=== PATIENT | female | born 1960 | race Caucasian/White ===

== ENCOUNTER 2020-04-09 22:04 | Emergency (ER) | payer BC, SELFPAY ==
--- NOTE | 2020-04-09 22:15 | ED.EPISTAXIS ---
HPI - Epistaxis General Chief complaint: Epistaxis Stated complaint: nosebleed Time Seen by Provider: 04/09/20 22:12 Source: patient History of Present Illness HPI Narrative: 59 years old white female came with right epistaxis started earlier today, intermittent. Patient denies any trauma or similar symptoms. Patient on aspirin. complaint: epistaxis Related Data Home Medications Medication Instructions Recorded Confirmed aspirin [Aspir-81] 81 mg PO DAILY 08/27/19 08/28/19 atorvastatin 20 mg PO HS 08/27/19 08/28/19 cholecalciferol (vitamin D3) 1,000 unit PO DAILY 08/27/19 08/28/19 [Vitamin D3] cranberry extract 500 mg PO BID 08/27/19 08/28/19 folic acid 1 mg PO DAILY 08/27/19 08/28/19 Allergies Allergy/AdvReac Type Severity Reaction Status Date / Time adhesive Allergy Unknown RASH Verified 01/26/20 15:33 fentanyl AdvReac Mild N&V FOR Verified 01/26/20 15:33 SEVERAL DAYS AFTER RECIEVING Review of Systems Review of Systems: Narrative: CONSTITUTIONAL: Denies fever, chills, or sweats. EYES: Denies visual changes, redness, or discharge. ENT: Denies rhinorrhea, congestion, sore throat, or otalgia. Epistaxis CARDIOVASCULAR: Denies chest pain, palpitations, or edema. RESPIRATORY: Denies cough or dyspnea. GASTROINTESTINAL: Denies abdominal pain, nausea, vomiting, or diarrhea. GENITOURINARY: Denies dysuria or hematuria. SKIN: Denies rash or itching. MUSCULOSKELETAL: Denies back pain, joint pain, or myalgia. NEUROLOGIC: Denies headache, numbness, or weakness. PSYCHIATRIC: Denies anxiety or depression. PMFSH Past Medical History Medical History Hyperlipidemia Exam Narrative: Exam Narrative: General appearance: Well-developed, well-nourished Skin: Normal color Head: Normocephalic, nontraumatic Eyes: Clear conjunctiva ENT: Oropharynx normal, ears normal, nose normal Neck: Supple, nontender Chest and respiratory: Airway patent, no respiratory distress, no accessory muscle use Heart: Regular rate/rhythm Abdomen: Soft, nontender, no organomegaly, quiet bowel sounds Vascular: Normal peripheral pulses, normal capillary refill. 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, no gross motor deficit Course Course Emergency Course: Improving Vital Signs Vital signs: Vital Signs Temperature 37.2 C 04/09/20 22:29 Pulse Rate 107 H 04/09/20 22:29 Respiratory Rate 15 04/09/20 22:29 Blood Pressure 142/81 H 04/09/20 22:29 Pulse Oximetry 100 04/09/20 22:29 Temperature 37.2 C 04/09/20 22:29 Pulse Rate 107 H 04/09/20 22:29 Respiratory Rate 15 04/09/20 22:29 Blood Pressure 142/81 H 04/09/20 22:29 Pulse Oximetry 100 04/09/20 22:29 Procedures Epistaxis Control right: Epistaxis Control Date: 04/09/20 Epistaxis Control Time: 23:12 Time Out Performed: Yes (10 minutes) Direct Inspection: unable to visualize Clots Removed by: manually Cautery Used: none Device Inserted: hemostatic balloon Patient Tolerated Procedure: well and no complications Epistaxis Control Narrative: I could not see the source of bleeding, patient was bleeding profusely, nasal compression did not stop the bleeding, Rhino Rocket placement was good enough to stop the bleeding over 15 minutes. Currently patient feeling okay except slight right cheek pain. Patient declined to take any pain medication in the emergency room because she have to drive herself back home. MDM - Epistaxis MDM Narrative Medical decision making narrative: Epistaxis, could be secondar
[2020-04-09 22:29] VITALS: BP 142/81; PULSE 107; RESP 15; TEMP 37.2; O2SAT 100
[2020-04-09 22:47] LABS: Basophils Absolute Auto 0.1 K/mm3 (0.0-0.1); Basophils Percent Auto 0.5 % (0.2-1.2); Eosinophils Absolute Auto 0.1 K/mm3 (0-0.3); Eosinophils Percent Auto 0.7 % (0-4.4); Hematocrit 39.3 % (37.0-47.0); Hemoglobin 12.7 g/dL (12.0-15.0); Immature Granulocyte Absolute 0.03 K/mm3 (0.00-0.031); Immature Granulocyte Percent A 0.3 % (0-0.5); Lymphocytes Absolute Auto 2.47 K/mm3 (0.9-3.2); Lymphocytes Percent Auto 26.4 % (18.3-44.2); Mean Corpuscular HGB Conc 32.3 g/dl (32-36); Mean Corpuscular Hemoglobin 29.1 pg (26-34); Mean Corpuscular Volume 90.1 fl (80-100); Mean Platelet Volume 10.7 fl (7.4-10.4); Monocytes Absolute Auto 0.6 K/mm3 (0.1-0.6); Monocytes Percent Auto 6.4 % (2.6-8.5); Neutrophils Absolute Auto 6.1 K/mm3 (1.3-6.7); Neutrophils Percent Auto 65.7 % (45.5-73.1); Platelet Count Result 272 k/mm3 (150-375); Red Blood Count 4.36 M/mm3 (4.2-5.4); Red Cell Distribution Width 14.6 % (11.5-14.5); White Blood Count 9.4 K/mm3 (4.5-10.0)
--- NOTE | 2020-04-09 23:11 | PC.NURSE ---
Report received from MANDO Rajput. Assumed care of patient at this time.
[2020-04-09] MEDS: KETOROLAC 30 MG/ML VIAL (*BKC) IV PUSH (23:29)
[2020-04-09] MEDS: AMOXICILLIN/CLAVULANATE K 875-125 MG TAB 1 TABLET PO (23:29)
== END 2020-04-09 23:48 | disposition home or self-care (01) ==
PROVIDERS: Emergency Provider Emergency Medicine
DX: R04.0 Epistaxis (principal); E78.5 Hyperlipidemia, unspecified
CPT/HCPCS: 30901; 36415; 85025; 96374; 99284; A9270; J1885

== ENCOUNTER 2020-04-10 06:05 | Emergency (ER) | payer BC, SELFPAY ==
[2020-04-10] VITALS (7 sets, daily range): BP systolic 96–130; BP diastolic 69–88; PULSE 62–94; RESP 15–20; TEMP 36.6–36.7; O2SAT 93–100
--- NOTE | 2020-04-10 07:18 | ED.EPISTAXIS ---
HPI - Epistaxis General Chief complaint: Epistaxis Stated complaint: epistaxis Time Seen by Provider: 04/10/20 07:04 History of Present Illness HPI Narrative: Seen here for a nose bleed last night. rapid rhino placed. Hemostasis obtained initially. Awoken from sleep early this morning by bleeding. Packing still in place. No trauma. No blood thinners. Related Data Home Medications Medication Instructions Recorded Confirmed atorvastatin 20 mg PO HS 08/27/19 08/28/19 cholecalciferol (vitamin D3) 1,000 unit PO DAILY 08/27/19 08/28/19 [Vitamin D3] cranberry extract 500 mg PO BID 08/27/19 08/28/19 Allergies Allergy/AdvReac Type Severity Reaction Status Date / Time adhesive Allergy Unknown RASH Verified 04/10/20 12:52 fentanyl AdvReac Mild N&V FOR Verified 04/10/20 12:52 SEVERAL DAYS AFTER RECIEVING Review of Systems Review of Systems: All systems reviewed & are unremarkable except as noted in HPI and below ENT: Denies dizziness, Reports epistaxis and Denies sore throat Cardiovascular: Cardiovascular: Denies chest pain Respiratory: Respiratory: Denies dyspnea Neurologic: Denies syncope and Denies weakness Hematologic/Lymphatic: Hematologic/Lymphatic: Denies easy bleeding and Denies easy bruising PMFSH Past Medical History Medical History Hyperlipidemia Exam Const: General: healthy appearing, no acute distress and alert Orientation/consciousness: patient oriented x3 HENMT: Other: Mild active bleeding around packing. Eyes: Pupils: Equal, round and reactive pupils present Neck: Neck: normal visual inspection and no lymphadenopathy Chest: Chest palpation & inspection: no tenderness Resp: Effort & Inspection: normal respiratory effort Auscultation: clear to auscultation bilaterally, no rales, no rhonchi and no wheezes Cardio: Jugular venous distension: no JVD Rate: regular rate Rhythm: regular rhythm Heart sounds: no murmurs GI: Inspection: non-distended GI Palp: Yes Soft to palpation and No Tenderness to palpation present (GI) Skin: General skin exam: normal color Neuro: General: patient oriented x3 and moves all extremities Speech: normal speech Extrem: General: no edema Psych: Appearance: well kempt Affect: normal affect Course Vital Signs Vital signs: Vital Signs Temperature 36.7 C 04/10/20 06:14 Pulse Rate 94 04/10/20 06:14 Respiratory Rate 18 04/10/20 06:14 Blood Pressure 116/77 04/10/20 06:14 Pulse Oximetry 99 04/10/20 06:14 Temperature 36.6 C 04/10/20 15:40 Pulse Rate 89 04/10/20 15:40 Respiratory Rate 18 04/10/20 15:40 Blood Pressure 105/69 04/10/20 15:40 Pulse Oximetry 96 04/10/20 15:40 Procedures Epistaxis Control right: Epistaxis Control Date: 04/10/20 Epistaxis Control Time: 16:04 Nose Prepped With: cocaine Direct Inspection: unable to visualize Clots Removed by: blowing nose Cautery Used: none Device Inserted: hemostatic balloon Device Size: 7 MDM - Epistaxis MDM Narrative Medical decision making narrative: I attempted adding air to the balloon already in place. She did not tolerate this well and it was not successful in stopping the bleeding. I then packed with TXA soaked gauze. Bleeding slowed. Contacted Dr. Clements he recommends putting a new rapid rhino in. This was done and the bleeding stopped. Discharge Plan Discharge Clinical Impression: Epistaxis Patient Disposition: Home, Self-Care Condition: Stable Instructions: Nosebleed (ED) Prescriptions: No Action atorvastatin 20 mg tablet 20 mg PO HS RF: 0 cranberry extract 500 mg Tablet 500 mg PO BID RF: 0 cholecalciferol (vitamin D3) [Vitamin D3] 1,000 unit Capsule 1,000 unit PO DAILY RF: 0 hydrocodone-acetaminophen 5-325 mg tablet 1 tablet PO Q4H PRN (Reason: pain) Qty: 14 RF: 0 Follow-up/Referrals: Connie
[2020-04-10] MEDS: LORazepam 1 MG TABLET PO ×2 (07:44→14:20)
--- NOTE | 2020-04-10 12:58 | PC.NURSE ---
Patient tells me that she usually has more bleeding when she sits up. At this time she is reporting blood in the back of her throat and is spitting clots into an emesis bag at this time. Patient was repositioned at this time to see if she was able to tolerate with no increase in bleeding.
--- NOTE | 2020-04-10 15:40 | PC.NURSE ---
In room with EDP, patient, and her family member. Discussing plan of care with EDP at this time.
--- NOTE | 2020-04-10 16:07 | PC.NURSE ---
EDP in room to place rhino rocket in right nare
== END 2020-04-10 17:56 | disposition home or self-care (01) ==
PROVIDERS: Emergency Provider Emergency Medicine; PCP Internal Medicine
DX: R04.0 Epistaxis (principal)
CPT/HCPCS: 30901; 99283; A9270

== ENCOUNTER → 2020-06-23 09:51 | Outpatient (CLI) | payer BC, SELFPAY ==
--- NOTE | ~2020-06-23 | CT_ITS ---
EXAMINATION: CT sinus wo con DATE: 06/23/2020 10:09 INDICATION: Chronic sinusitis. Nosebleeds. TECHNIQUE: Computed tomography (CT) of the paranasal sinuses was performed without intravenous contra st. The dose-length product was 297.70 mGy-cm. Automated exposure control and iterative reconstructio n technique were employed. COMPARISON: None FINDINGS: The paranasal sinuses are pneumatized. Mastoids are pneumatized. Ostiomeatal units are urena nt. Rightward nasal septal deviation. No mucosal thickening, mucoperiosteal reaction. Ostiomeatal uni ts are patent. IMPRESSION: 1. No significant sinus disease. Reviewed, dictated and finalized at location B.
== END ==
PROVIDERS: Visit Provider Internal Medicine
DX: J32.9 Chronic sinusitis, unspecified (principal)
CPT/HCPCS: 70486

== ENCOUNTER 2020-10-12 14:57 | Outpatient (CLI) | payer BC, SELFPAY ==
--- NOTE | ~2020-10-12 | MM_ITS ---
EXAMINATION: MM screening kulwant BI w lindsey HISTORY: Screening mammogram, family history of breast cancer in her mother. TECHNIQUE: Craniocaudal and mediolateral oblique 3-D tomosynthesis images were obtained and synthetic 2-D images were generated. CAD analysis was submitted and interpreted. COMPARISON: 09/23/2019, 09/18/2019, 09/05/2017 BREAST PARENCHYMAL COMPOSITION: There are scattered areas of fibroglandular density. FINDINGS: Scattered benign-appearing calcifications are present. There is no evidence of suspicious m ass, calcification, or architectural distortion to suggest malignancy in either breast. There has bee n no suspicious interval change. IMPRESSION: 1. No mammographic evidence of malignancy. 2. Recommend routine screening mammography in one year. BI-RADS Category 2: Benign finding(s). Reviewed, dictated and finalized at location A. 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
== END 2020-10-12 14:58 | disposition home or self-care (01) ==
LOC: ANHIMG 14:59
PROVIDERS: PCP Internal Medicine; Visit Provider Internal Medicine
DX: Z12.31 Encounter for screening mammogram for malignant neoplasm of breast (principal)
CPT/HCPCS: 77063; 77067

== ENCOUNTER → 2020-12-07 12:01 | Outpatient (CLI) | payer BC, SELFPAY ==
[2020-12-08 00:45] LABS: SARS-CoV-2 RNA PCR Negative
== END ==
PROVIDERS: PCP Internal Medicine; Visit Provider Internal Medicine
DX: R05 Cough (principal); Z20.822 Contact with and (suspected) exposure to COVID-19
CPT/HCPCS: C9803; U0003; U0005

== ENCOUNTER 2021-10-20 07:47 | Emergency (ER) | payer BC, SELFPAY ==
--- NOTE | ~2021-10-20 | CT_ITS ---
EXAMINATION: CT abdomen pelvis w con DATE: 10/20/2021 08:55 INDICATION: Right upper quadrant abdominal pain. TECHNIQUE: Computed tomography (CT) of the abdomen and pelvis was performed with 100 mL Omnipaque 350 intravenous contrast. Automated exposure control and iterative reconstruction technique were employe d. The dose-length product was 869.26 mGy-cm. COMPARISON: CT abdomen and pelvis 09/25/2018 FINDINGS: The visualized portions of the lung bases demonstrate mild atelectasis. No pleural effusion . The heart size is normal. No pericardial effusion. The liver, gallbladder, spleen, pancreas, adrena l glands, and kidneys are normal. There are no dilated loops of bowel. There is fat stranding around an epiploic appendage of hepatic flexure of the colon, consistent with epiploic appendagitis. The aitf endix is normal. There are no pathologically enlarged lymph nodes. There is no free intraperitoneal f luid. There is a hemangioma in T9 vertebral body. IMPRESSION: 1. Epiploic appendagitis involving the hepatic flexure of the colon. Reviewed, dictated and finalized at location B. 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
[2021-10-20 07:51] VITALS: BP 138/87; PULSE 91; RESP 18; TEMP 37.1; O2SAT 100
--- NOTE | 2021-10-20 08:04 | ED.ABDPAIN ---
HPI - Abdominal Pain General Chief Complaint: Abdominal Pain Stated Complaint: ABD Pain Time Seen by Provider: 10/20/21 07:52 Source: patient Mode of arrival: ambulatory Limitations: no limitations History of Present Illness HPI narrative: Patient is a 60-year-old female complaining of right upper quadrant pain, 7 out of 10, sharp, nonradiating accompanied by nausea that started 2 days ago. Patient denies any chest pain, shortness of breath, vomiting, diarrhea, urinary symptoms, fever or chills. Related Data Home Medications Medication Instructions Recorded Confirmed atorvastatin 20 mg PO HS 08/27/19 10/13/21 cholecalciferol (vitamin D3) 1,000 unit PO DAILY 08/27/19 10/13/21 [Vitamin D3] cranberry extract 500 mg PO BID 08/27/19 10/13/21 Allergies Allergy/AdvReac Type Severity Reaction Status Date / Time adhesive Allergy Unknown RASH Verified 10/20/21 07:58 fentanyl AdvReac Mild N&V FOR Verified 10/20/21 07:58 SEVERAL DAYS AFTER RECIEVING Review of Systems Review of Systems: All systems reviewed & are unremarkable except as noted in HPI and below Constitutional: Constitutional: Denies body ache(s), Denies chills, Denies excessive sweating, Denies fatigue, Denies fever(s), Denies headache(s), Denies lethargy, Denies malaise, Denies weakness and Denies weight loss Eyes: Eyes: Denies blurry vision, Denies change in vision and Denies loss of vision ENT: Denies dizziness, Denies ear discharge, Denies headache(s), Denies lip swelling, Denies epistaxis, Denies nasal congestion, Denies neck pain, Denies throat swelling and Denies tongue swelling Cardiovascular: Cardiovascular: Denies chest pain, Denies chest pain at rest, Denies chest pain with activity, Denies diaphoresis, Denies rapid heart rate, Denies edema, Denies irregular heart rhythm, Denies lightheadedness, Denies palpitations, Denies dyspnea and Denies dyspnea on exertion Respiratory: Respiratory: Denies chest congestion, Denies cough, Denies hemoptysis, Denies dyspnea and Denies dyspnea on exertion Gastrointestinal: Gastrointestinal: Denies melena, Denies hematochezia, Denies diarrhea, Denies vomiting and Denies hematemesis Musculoskeletal: Musculoskeletal: Denies abnormal gait, Denies deformity, Denies joint swelling, Denies limited range of motion, Denies neck pain and Denies numbness Neurologic: Denies Abnormal speech present, Denies abnormal gait, Denies confusion, Denies dizziness, Denies headache(s), Denies focal weakness, Denies loss of vision, Denies numbness, Denies Other visual disturbances, Denies Sensory deficit (Neuro) and Denies weakness Psychiatric: Psychiatric: Denies confusion, Denies depression, Denies auditory hallucinations, Denies homicidal ideation and Denies suicidal ideation Endocrine: Endocrine: Denies cold intolerance, Denies excessive sweating, Denies fatigue, Denies heat intolerance and Denies palpitations Hematologic/Lymphatic: Hematologic/Lymphatic: Denies easy bleeding and Denies easy bruising Allergic/Immunologic: Allergic/Immunologic: Denies lip swelling, Denies throat swelling and Denies tongue swelling PMFSH Past Medical History Medical History (Updated 10/20/21 @ 10:25 by Breezy Hines MD) Hyperlipidemia Social History Social History Smoking packs per day: 1 Smoking cigarettes per day: 20.0 Years smoked: 30 Smoking pack-years: 30.00 Smoking status: Former smoker Tobacco type: cigarettes Alcohol intake: current Alcohol use details: occasional Substance use: never Substance use type: does not use Spiritual care concerns: No Exam Const: General: cooperative, healthy appearing, comfortable, no acute distress, well developed, alert and awake; No confusion Orientation/consciousness: oriented to person, oriented to place, oriented to time, patient oriented x3 and No confusion Limitations: no limitations HENMT: Head: n
[2021-10-20] MEDS: SODIUM CHLORIDE 0.9% IV 1,000 ML 999 ML IV CONT (08:10)
[2021-10-20 08:31] LABS: Basophils Absolute Auto 0.1 K/mm3 (0.0-0.1); Basophils Percent Auto 0.7 % (0.2-1.2); Eosinophils Absolute Auto 0.3 K/mm3 (0-0.3); Eosinophils Percent Auto 3.1 % (0-4.4); Hematocrit 40.3 % (37.0-47.0); Hemoglobin 13.1 g/dL (12.0-15.0); Immature Granulocyte Absolute 0.01 K/mm3 (0.00-0.031); Immature Granulocyte Percent A 0.1 % (0-0.5); Lymphocytes Percent Auto 34.2 % (18.3-44.2); Mean Corpuscular HGB Conc 32.5 g/dl (32-36); Mean Corpuscular Volume 89.4 fl (80-100); Mean Platelet Volume 10.4 fl (7.4-10.4); Monocytes Absolute Auto 0.8 K/mm3 (0.1-0.6); Monocytes Percent Auto 9.3 % (2.6-8.5); Neutrophils Absolute Auto 4.3 K/mm3 (1.3-6.7); Neutrophils Percent Auto 52.6 % (45.5-73.1); Platelet Count Result 319 k/mm3 (150-375); Red Blood Count 4.51 M/mm3 (4.2-5.4); Red Cell Distribution Width 14.7 % (11.5-14.5); White Blood Count 8.2 K/mm3 (4.5-10.0)
[2021-10-20 08:41] LABS: Add Urine Microscopic? YES; Appearance Urine Clear (Clear); Bilirubin Urine Negative (Negative); Blood Urine 1+ (Negative); Color Urine Yellow (Yellow); Glucose Urine UA Negative (Negative); Ketones Urine Negative (Negative); Leukocyte Esterase Ur Trace LEU/UL (Negative); Mucus Urine Few /lpf; Nitrate Urine Negative (Negative); Protein Urine Negative (Negative); Specific Grav Ur 1.024 (1.001-1.035); Squamous Epithelial Cell Urine Rare /hpf (Few); Urobilinogen Urine Negative mg/dL (<2.0); WBC Urine 0-3 /hpf
[2021-10-20 08:41] LABS: Alanine Aminotransferase 23 U/L (4-35); Albumin Level 4.3 g/dL (3.5-5.1); Alkaline Phosphatase 89 U/L (38-126); Anion Gap 7 mmol/L (8-16); Aspartate Amino Transferase 29 U/L (14-36); Bilirubin,Total 0.4 mg/dL (0.2-1.3); Blood Urea Nitrogen 19 mg/dL (7-17); Carbon Dioxide 26 mmol/L (22-30); Chloride 106 mmol/L (98-107); Estimated CRCL calculation 80 ml/min; Estimated Glomerular Filt Rate > 60; Glucose 108 mg/dL (65-110); Lipase 71 U/L (23-300); Potassium 4.1 mmol/L (3.4-5.0); Sodium 139 mmol/L (137-145)
[2021-10-20 10:30] VITALS: BP 125/83; PULSE 83; RESP 14; O2SAT 97
== END 2021-10-20 10:30 | disposition home or self-care (01) ==
PROVIDERS: Emergency Provider Emergency Medicine; PCP Internal Medicine
DX: K63.89 Other specified diseases of intestine (principal); E78.5 Hyperlipidemia, unspecified; Z87.891 Personal history of nicotine dependence
CPT/HCPCS: 36415; 74177; 80053; 81001; 83690; 85025; 96360; 99284; J7030; Q9967

== ENCOUNTER → 2021-10-24 02:09 | Outpatient (CLI) | payer BC, SELFPAY ==
[2021-10-24 19:53] LABS: SARS-CoV-2 RNA PCR Positive
== END ==
PROVIDERS: PCP Internal Medicine; Visit Provider Internal Medicine Gastroenterology
DX: U07.1 COVID-19 (principal)
CPT/HCPCS: C9803; U0003; U0005

== ENCOUNTER 2021-11-24 03:24 | Day surgery (SDC) | payer BC, SELFPAY ==
[2021-10-13 14:54] VITALS: BMI 29.5
--- NOTE | 2021-11-13 11:54 | PC.NURSE ---
pt udpated with new date and time for egd on nov 24, arrive at 0915 for 1045 procedure. pt states no changes to health or meds since last pat call. voiced understanding of instruction but does request hard copy be mailed. let her know it would be mailed to her.
[2021-11-24 09:34] VITALS: BP 124/79; PULSE 77; RESP 17; TEMP 36.4; O2SAT 99; BMI 32.1
[2021-11-24] MEDS: LACTATED RINGERS 1,000 ML 150 ML IV CONT (09:39)
--- NOTE | 2021-11-24 09:59 | P.PNAN_ITS ---
Anes - Initial Pre Proc Eval Procedure: Operation Date: 11/24/21 10:45 Proposed Procedures p Esophagogastroduodenoscopy - Dylan Dent MD Date/Time: 11/24/21 09:59 Surgeon: Dylan Dent MD Pre Op Diagnosis: GERD Patient Data Age: 61 Gender: F Height: 1.63 m Weight: 84.8 kg Last Vital Signs Temp 36.4 C L 11/24/21 09:34 Pulse 77 11/24/21 09:34 Resp 17 11/24/21 09:34 BP 124/79 11/24/21 09:34 Pulse Ox 99 11/24/21 09:34 Allergies Allergy/AdvReac Type Severity Reaction Status Date / Time adhesive Allergy Unknown RASH Verified 11/24/21 09:32 fentanyl AdvReac Mild N&V FOR Verified 11/24/21 09:32 SEVERAL DAYS AFTER RECIEVING Home Medications Medication Instructions Recorded Confirmed Type atorvastatin 20 mg PO HS 08/27/19 11/24/21 History cholecalciferol (vitamin D3) 1,000 unit PO DAILY 08/27/19 11/24/21 History [Vitamin D3] cranberry extract 500 mg PO BID 08/27/19 11/24/21 History tramadol 50 mg PO Q6H PRN #12 tablet 10/20/21 11/24/21 Rx Patient hx anesthesia problems: none Family hx anesthesia problems: none Results Review: All pre-operative results and documents have been reviewed as part of the pre-operative evaluation. [facility] Past Medical History Medical History Arthritis GERD (gastroesophageal reflux disease) Hyperlipidemia NESTOR (obstructive sleep apnea) Social History Social History Smoking packs per day: 1 Smoking cigarettes per day: 20.0 Years smoked: 30 Smoking pack-years: 30.00 Smoking status: Former smoker Tobacco type: cigarettes Alcohol intake: current Alcohol use details: occasional Substance use: never Substance use type: does not use Living arrangements: with family Spiritual care concerns: No Anes - Eval Final PreProcedure Day of Procedure 11/24/21 09:59 Patient weight: obese Heart: regular rate and rhythm Lungs: decreased breath sounds Airway: Mallampati scale class II Neurological: alert and oriented Last oral intake: >/= 8 hours ASA classification: III Emergent: no Anesthetic plan: proceed Anesthesia type and monitoring: general GIVS and standard monitoring Results Review: All pre-operative results and documents have been reviewed as part of the pre-operative evaluation. Informed Consent: The patient's anesthetic plan and its attendant risks and benefits were discussed with the patient/family/POA. Questions were solicited and answers provided to the satisfaction of the patient/family/POA.
--- NOTE | 2021-11-24 10:24 | WPDGICN ---
Assessment and Plan Assessment and plan (1) Epigastric abdominal pain: Code(s): R10.13 - Epigastric pain Status: Acute Assessment and Plan: Patient with resolved epigastric pain apparently diagnosed as having epiploic appendagitis in the ER. Likely this has resolved at this point. Patient does have difficulty swallowing cold liquids suggesting possible esophageal spasm. She notes a burning type regurgitation in her throat. I would recommend in consideration of Pepcid or Prilosec be given on a daily basis for this. An EGD has been requested will be performed. Previous EGD in 2019 was unremarkable with similar complaints. Further recommendations will be given after endoscopy at this time. GI Consult Note Consult date/time: 11/24/21 10:24 HPI: Mindy Dukes is a 61 year old female Presents for EGD. Patient complains of burning reflux in her throat. She states this occurs intermittently. She will occasionally take Tums for relief. On no other medications for this at present. She apparently tried Zantac in the past but stopped this went with withdrawn from the market. She has not tried any other acid suppressing medications. She additionally notes that when drinking cold liquids that they will pass slowly through the mid substernal portion of the chest. She also states that she has difficulty open her mouth wide because of previous dislocation of her jaw. Patient recently seen in the ER in October with upper abdominal discomfort. CT scan suggested epiploic appendagitis. This pain is subsequently ablated. For all these reasons an EGD was requested to be performed today. Patient has a history of an EGD in 2019 that was unremarkable. At that time Pepcid therapy was suggested as a trial. Apparently this has not yet been accomplished. Review of Systems Review of Systems: All systems reviewed & are unremarkable except as noted in HPI and below [facility] Past Medical History Medical History Arthritis GERD (gastroesophageal reflux disease) Hyperlipidemia NESTOR (obstructive sleep apnea) Social History Social History Smoking packs per day: 1 Smoking cigarettes per day: 20.0 Years smoked: 30 Smoking pack-years: 30.00 Smoking status: Former smoker Tobacco type: cigarettes Alcohol intake: current Alcohol use details: occasional Substance use: never Substance use type: does not use Living arrangements: with family Spiritual care concerns: No Meds Home Medications and Allergies Home Medications Medication Instructions Recorded Confirmed Type atorvastatin 20 mg PO HS 08/27/19 11/24/21 History cholecalciferol (vitamin D3) 1,000 unit PO DAILY 08/27/19 11/24/21 History [Vitamin D3] cranberry extract 500 mg PO BID 08/27/19 11/24/21 History tramadol 50 mg PO Q6H PRN #12 tablet 10/20/21 11/24/21 Rx Allergies Allergy/AdvReac Type Severity Reaction Status Date / Time adhesive Allergy Unknown RASH Verified 11/24/21 09:32 fentanyl AdvReac Mild N&V FOR Verified 11/24/21 09:32 SEVERAL DAYS AFTER RECIEVING Vital Signs Vital Signs - 24 hr 11/24/21 09:34 Temperature 97.5 F L Pulse Rate 77 Respiratory Rate 17 Blood Pressure 124/79 Pulse Oximetry 99 Exam Narrative: Physical exam reveals patient to be alert. Vital signs stable. HEENT exam is unremarkable. Patient is anicteric. Lungs are clear to auscultation and percussion. Heart is without murmur or extra sounds. Abdomen bowel sounds present soft nontender with no organomegaly.
[2021-11-24 10:48] VITALS: BP 101/68; PULSE 75; RESP 18; O2SAT 99
[2021-11-24 10:58] VITALS: BP 99/66; PULSE 79; RESP 21; O2SAT 98
[2021-11-24 11:08] VITALS: BP 112/78; PULSE 75; RESP 18; O2SAT 99
== END 2021-11-24 11:19 | disposition home or self-care (01) ==
PROVIDERS: PCP Internal Medicine; Visit Provider Internal Medicine Gastroenterology
PROC: 0DJ08ZZ Inspection of Upper Intestinal Tract, Via Natural or Artificial Opening Endoscopic (ICD-10-PCS; CPT 43235; principal; 2021-11-24 10:45)
DX: K21.9 Gastro-esophageal reflux disease without esophagitis (principal); E78.5 Hyperlipidemia, unspecified; G47.33 Obstructive sleep apnea (adult) (pediatric); Z87.891 Personal history of nicotine dependence; E66.9 Obesity, unspecified; Z68.32 Body mass index [BMI] 32.0-32.9, adult
CPT/HCPCS: 43239; 87081; J2001; J2704; J7120

== ENCOUNTER 2022-01-02 16:42 | Outpatient (CLI) | payer BC, SELFPAY ==
--- NOTE | ~2022-01-02 | MM_ITS ---
EXAMINATION: MM screening kulwant BI w lindsey HISTORY: Screening mammogram, family history of breast cancer in her mother. TECHNIQUE: Craniocaudal and mediolateral oblique 3-D tomosynthesis images were obtained and synthetic 2-D images were generated. CAD analysis was submitted and interpreted. COMPARISON: 10/12/2020, 09/23/2019, 09/18/2018 BREAST PARENCHYMAL COMPOSITION: There are scattered areas of fibroglandular density. FINDINGS: Scattered benign-appearing calcifications are present. There is no suspicious mass, calcifi cation, or architectural distortion to suggest malignancy in either breast. There has been no suspici ous interval change. IMPRESSION: 1. No mammographic evidence of malignancy. 2. Recommend routine screening mammography in one year. BI-RADS Category 2: Benign finding(s). Reviewed, dictated and finalized at location A.
== END 2022-01-02 16:43 | disposition home or self-care (01) ==
LOC: ANHIMG 16:44
PROVIDERS: PCP Internal Medicine; Visit Provider Internal Medicine
DX: Z12.31 Encounter for screening mammogram for malignant neoplasm of breast (principal)
CPT/HCPCS: 77063; 77067

== ENCOUNTER 2022-02-13 15:28 | Outpatient (CLI) | payer BC, SELFPAY ==
--- NOTE | ~2022-02-13 | DEXA_ITS ---
Bone Density Report Name: CAYDEN HERRERA Age: 61 Sex: Female Ethnicity: White Date of : 1960 Indication: postmenopausal; screening for osteoporosis; hysterectomy; Referring Provider: LEXI, MANI Study: Bone densitometry was performed. Exam Date: February 13, 2022 Accession number: [id number] Bone Density: Region BMD T-score Z-score Classification AP Spine(L1-L4) 0.888 -1.4 -0.1 Osteopenia Femoral Neck (Left) 0.712 -1.2 0.0 Osteopenia Total Hip (Left) 0.873 -0.6 0.3 Normal Femoral Neck (Right) 0.727 -1.1 0.2 Osteopenia Total Hip (Right) 0.843 -0.8 0.1 Normal Total Hip Mean 0.858 -0.7 0.2 Normal World Health Organization criteria for BMD impression classify patients as: Normal (T-score at or above -1.0), Osteopenia (T-score between -1.0 and -2.5), or Osteoporosis (T-score at or below -2.5). 10-year Fracture Risk(1): Major Osteoporotic Fracture 6.9% Hip Fracture 0.4% Reported Risk Factors: [place] (), Neck BMD=0.712, BMI=31.1 (1) FRAX(R) Version 3.08. Fracture probability calculated for an untreated patient. Fracture probability may be lower if the patient has received treatment. Clinical Information Provided by Patient: Has the following medical conditions: Hysterectomy Patient maximum height was 65 Menopause Age: 58 No regular weight bearing exercise Drinks caffeinated beverages Onset of menses at age 14 Number of children 3 Impression: The patient has low bone mass, based on the Total Spine T-score. The patient has an estimated ten-year risk of hip fracture of 0.4% and an estimated ten-year risk of major fracture of 6.9%, based on the WHO FRAX algorithm. Discussion: BONE DENSITY IS LOW AT ONE OR MORE SKELETAL SITES. This patient's lowest T-score is low at one or more skeletal sites. It meets the World Health Organization's (WHO) criteria for ?low bone mass? (T-score between -1.0 and -2.5). The patient's 10-year risk of fracture as calculated by FRAX is less than the threshold where pharmacological therapy is recommended by the National Osteoporosis Foundation (NOF). However, all treatment decisions require clinical judgment and consideration of individual patient factors, including patient preferences, comorbidities, previous drug use, risk factors not captured in the FRAX model (e.g., frailty, falls, vitamin D deficiency, increased bone turnover, interval significant decline in bone density) and possible under or overestimation of fracture risk by FRAX. The patient should follow a healthful lifestyle (good nutrition with adequate calcium and vitamin D, and appropriate weight-bearing exercise). Follow-Up: Consider repeating this study in 2 to 3 years to reassess this patient's status, or sooner if there is some new clinical indication. Reported
== END 2022-02-13 15:29 | disposition home or self-care (01) ==
PROVIDERS: PCP Internal Medicine; Visit Provider Internal Medicine
DX: Z13.820 Encounter for screening for osteoporosis (principal); M85.88 Other specified disorders of bone density and structure, other site; M85.851 Other specified disorders of bone density and structure, right thigh; M85.852 Other specified disorders of bone density and structure, left thigh
CPT/HCPCS: 77080

== ENCOUNTER 2023-07-17 15:48 | Outpatient (CLI) | payer BC, SELFPAY ==
--- NOTE | ~2023-07-17 | MM_ITS ---
EXAMINATION: MM screening kulwant BI w lindsey HISTORY: Screening mammogram TECHNIQUE: Craniocaudal and mediolateral oblique 3-D tomosynthesis images were obtained and synthetic 2-D images were generated. CAD analysis was submitted and interpreted. COMPARISON: 01/02/2022, 10/12/2020, 09/23/2019 bilateral screening mammogram examinations BREAST PARENCHYMAL COMPOSITION: There are scattered areas of fibroglandular density. FINDINGS: Numerous scattered bilateral benign calcifications are are noted, mostly sebaceous cyst lesli cifications. There is no evidence of suspicious mass, calcification, or architectural distortion to s uggest malignancy in either breast. There has been no suspicious interval change. IMPRESSION: 1. No mammographic evidence of malignancy. 2. Recommend routine screening mammography in one year. BI-RADS Category 2: Benign finding(s). Reviewed, dictated and finalized at location A.
== END 2023-07-17 15:49 | disposition home or self-care (01) ==
LOC: ANHIMG 15:56
PROVIDERS: PCP Internal Medicine; Visit Provider Internal Medicine
DX: Z12.31 Encounter for screening mammogram for malignant neoplasm of breast (principal)
CPT/HCPCS: 77063; 77067